=== PATIENT | female | born 1985 | race Two or more races ===

== ENCOUNTER 2018-07-14 22:16 | Inpatient (IN) | payer OTHER ==
[2018-07-14 23:21] LABS: HEMATOCRIT 38.8 % (36.0-47.0); HEMOGLOBIN 12.6 g/dl (12.0-15.5); MEAN CORPUSCULAR HEMOGLOBIN 30.1 pg (27.0-33.0); MEAN CORPUSCULAR HGB CONC 32.5 g/dl (32.0-36.5); MEAN CORPUSCULAR VOLUME 92.6 fl (80.0-96.0); PLATELET COUNT, AUTOMATED 117 10^3/uL (150-450); RED BLOOD COUNT 4.19 10^6/uL (4.00-5.40); RED CELL DISTRIBUTION WIDTH 13.5 % (11.5-14.5); WHITE BLOOD COUNT 9.6 10^3/uL (4.0-10.0)
[2018-07-14] MEDS ORDERED: PENICILLIN G POTASSIUM 5 MU VIAL As Ordered (23:52)
[2018-07-15] MEDS: PENICILLIN G POTASSIUM IV 5 MU in D5W MINI-BAG PLUS 100 ML IV
[2018-07-15 01:02] LABS: BEDSIDE GLUCOSE 96 MG/DL (70-105)
[2018-07-15] MEDS: LR 1,000 ML IV ×3 (01:08→08:27)
[2018-07-15] MEDS: PENICILLIN G POTASSIUM IV 2.5 MU in APPROPRIATE DILUENT 1 EA IV ×2 (03:58→08:27)
[2018-07-15] MEDS ORDERED: OXYTOCIN 30 UNITS IN 0.9% NaCl 500ML IV BAG (J2590) As Ordered (04:27)
[2018-07-15] MEDS: OXYTOCIN DRIP 30 UNITS in APPROPRIATE DILUENT 1 EA IV ×2 (04:37→11:29)
[2018-07-15] MEDS: BUTORPHANOL 2 MG/ML INJ (J0595) IV ×2 (11:00→11:05)
[2018-07-15] MEDS ORDERED: DIBUCAINE 1% OINTMENT 30GM TOP (11:30)
[2018-07-15] MEDS ORDERED: RHOGAM 300 MCG (1500 IU) INJ (J2790) IM (11:30)
[2018-07-15] MEDS: miSOPROStol 200 MCG TAB (S0191) PR (11:30)
[2018-07-15] MEDS ORDERED: MEASLES,MUMPS,RUBELLA VACCINE INJ (MMR-II) (90707) SC (11:30)
[2018-07-15] MEDS ORDERED: DOCUSATE SODIUM 100 MG CAP PO (11:30)
[2018-07-15] MEDS: IBUPROFEN 800 MG TAB PO (13:59)
[2018-07-15] MEDS: ACETAMINOPHEN 500 MG TAB PO (18:30)
[2018-07-16] MEDS: IBUPROFEN 800 MG TAB PO (03:50)
[2018-07-16] MEDS: PRENATAL VITAMINS CHEWABLE TABLET PO (09:07)
== END 2018-07-16 15:20 | disposition home or self-care (01) | DRG 775 ==
LOC: M LDO 22:16 → M LDI 23:00 → M OBS 07-15 13:28
PROVIDERS: Obstetrics & Gynecology
PROC: 10E0XZZ Delivery of Products of Conception, External Approach (ICD-10-PCS; principal; 2018-07-15)
PROC: 0HQ9XZZ Repair Perineum Skin, External Approach (ICD-10-PCS; 2018-07-15)
DX: O42.02 Full-term premature rupture of membranes, onset of labor within 24 hours of rupture (principal); Z37.0 Single live birth; Z3A.39 39 weeks gestation of pregnancy; O70.0 First degree perineal laceration during delivery